=== PATIENT | male | born 1945 | race Caucasian/White ===

== ENCOUNTER → 2025-02-24 | Outpatient (CLI) | payer MEDICARE, OTHER, SELFPAY ==
--- NOTE | 2025-02-24 09:30 | MRI_ITS ---
PROCEDURE: SPINE LUMBAR (ROUTINE) 02/24/2025 REASON FOR EXAM: PAIN TECHNIQUE: Multiplanar and multisequence images were obtained without IV contrast administration. COMPARISON: January 23, 2025 x-ray FINDINGS: There is a 25% anterior compression deformity at L2, with chronic features. There is Modic edema type endplate change at L2-3 on the right aspect. There is grade 1 spondylolisthesis at L4-5, 0.3 cm. Disc signal shows desiccation. The facets are aligned. The L1-L2 level: There is moderate central, moderate right and mild left paracentral disc and osteophyte protrusion. There is mild right lateral recess effacement. There is mild right foraminal narrowing secondary to disc protrusion and facet hypertrophy. There is no central canal stenosis.. The L2-L3 level: There is broad-based central and right and left paracentral disc and osteophyte protrusion. There is moderate right and severe left lateral recess stenosis. There is moderate bilateral foraminal narrowing secondary to disc and osteophyte protrusion. There is mild central canal stenosis.. The L3-L4 level: There is moderate central and right and left paracentral disc and osteophyte protrusion. There is mild bilateral lateral recess stenosis. There is mild bright and moderate left foraminal narrowing secondary to disc and osteophyte protrusion. There is no central canal stenosis. The L4-L5 level: There is broad-based central and right and left paracentral disc and osteophyte protrusion. There is moderate bilateral lateral recess stenosis. There is moderate right and severe left foraminal narrowing secondary to disc protrusion and facet hypertrophy. There is moderate central canal stenosis, partly secondary to ligamentous hypertrophy. A trace left facet effusion is noted. The L5-S1 level: There is moderate central and right and left paracentral disc and osteophyte protrusion. There is mild bilateral lateral recess stenosis. There is moderate bilateral foraminal narrowing secondary to disc protrusion and facet hypertrophy. There is no central canal stenosis. The visualized conus shows normal signal characteristics. Adjacent soft tissues are unremarkable. MRI/Spine Lumbar (Routine) IMPRESSION: There is a 25% anterior compression deformity at L2, with chronic features. There is Modic edema type endplate change at L2-3 on the right aspect, which ca n indicate recent injury or active inflammation. There is grade 1 spondylolisthesis at L4-5, 0.3 cm. There is mild central canal stenosis at L2-3, moderate central canal stenosis a t L4-5, with lateral recess and foraminal narrowing. Reading Location: [facility]
== END | disposition home or self-care (01) ==
LOC: MRI 08:55
PROVIDERS: PCP Internal Medicine; Referring Provider Student in an Organized Health Care Education/Training Program; Visit Provider Student in an Organized Health Care Education/Training Program
DX: M54.9 Dorsalgia, unspecified (principal)
CPT/HCPCS: 72148